=== PATIENT | male | born 1960 | race Caucasian/White ===

== ENCOUNTER 2016-05-05 17:43 | Inpatient (IN) | payer MEDICAID, OTHER ==
[~2016-05-05] VITALS: Ht 170.2 cm; Wt 64.4 kg
[~2016-05-05 17:43] MED LIST: METH40TA2 PO
[2016-05-05] MEDS ORDERED: FOLI1 PO (19:47)
[2016-05-05] MEDS ORDERED: PARO20TA24 PO (19:47)
[2016-05-05] MEDS ORDERED: GABA-531 PO (19:47)
[2016-05-05] MEDS ORDERED: THIA100 PO (19:47)
[2016-05-05 19:57] LABS: GLUCOSE,POINT OF CARE 73 MG/DL (70-110)
[2016-05-05 19:59] LABS: BASOPHILS # (AUTO) 0.06 K/uL (0.00-0.20); EOSINOPHILS # (AUTO) 0.25 K/uL (0.00-0.70); EOSINOPHILS % (AUTO) 4.22 % (1.0-6.0); HEMATOCRIT 38.7 % (41-53); LYMPHOCYTES # (AUTO) 2.8 K/uL (1.0-4.8); LYMPHOCYTES % (AUTO) 47.7 % (22.0-44.0); MEAN CORPUSCULAR HEMOGLOBIN 30.2 pg (26.0-34.0); MEAN CORPUSCULAR HGB CONC 33.6 G/dL (31.0-37.0); MEAN CORPUSCULAR VOLUME 90 fL (80-100); MONOCYTES # (AUTO) 0.4 K/uL (0.1-1.0); MONOCYTES % (AUTO) 6.5 % (2.0-9.0); NEUTROPHILS # (AUTO) 2.4 K/uL (1.8-7.7); NEUTROPHILS % (AUTO) 40.6 % (40.0-70.0); PLATELET COUNT (AUTO) 148 K/uL (150-450); RED BLOOD CELL COUNT(AUTO) 4.31 MIL/uL (4.50-5.90); RED CELL DISTRIBUTION WIDTH 13.1 % (11.5-14.5); WHITE BLOOD COUNT (AUTO) 5.9 K/uL (4.5-11.0)
[2016-05-05 20:02] LABS: ANION GAP 10 mmol/L (8-16); CALCIUM, TOTAL 8.3 mg/dL (8.8-10.5); CARBON DIOXIDE 27 mmol/L (22-29); CHLORIDE 103 mmol/L (98-107); CREATININE 0.72 mg/dL (0.60-1.30); GLOMERULAR FILTR. RATE CALC > 60 mL/min (>60); POTASSIUM 4.1 mmol/L (3.5-5.1); SODIUM SERUM 140 mmol/L (136-145); UREA NITROGEN, BLOOD 9 mg/dL (7-18)
[2016-05-05 20:09] LABS: ALANINE AMINOTRANSFERASE 29 U/L (12-78); ASPARTATE AMINOTRANSFERASE 31 U/L (15-37); BILIRUBIN,TOTAL 0.3 mg/dL (0.1-1.0); TOTAL PROTEIN, SERUM 8.2 g/dL (6.4-8.2)
[2016-05-05] MEDS ORDERED: HALOPERIDOL 5 MG TABLET PO PRN (22:30)
[2016-05-06 00:37] VITALS: BP 149/91
[2016-05-06] MEDS ORDERED: PNEUMOCOCCAL VACCINE POLYVALENT 0.5 ML VIAL [PPSV23] IM ONE (01:15)
[2016-05-06 07:06] LABS: GLUCOSE,POINT OF CARE 110 MG/DL (70-110)
[2016-05-06 08:38] VITALS: BP 132/71
[2016-05-06] MEDS: METHADONE HCL 10 MG TABLET PO SCH (09:17)
[2016-05-06] MEDS ORDERED: HYPROMELLOSE 0.5% 15 ML OPHTHALMIC SOLUTION OU PRN (11:45)
[2016-05-06] MEDS: LORazepam 2 MG TABLET PO PRN (11:46)
[2016-05-06 16:27] VITALS: BP 116/77
[2016-05-06] MEDS: NEOMYCIN/POLYMYXIN B/HYDROCORT 10 ML OTIC SUSPENSION AD SCH (17:00)
[2016-05-06] MEDS: HYDROCORTISONE 1% 30 GM OINTMENT TP SCH (17:51)
[2016-05-06] MEDS: OLANZapine 5 MG TABLET PO SCH (20:51)
[2016-05-06] MEDS: ZOLPIDEM TARTRATE 10 MG TABLET PO PRN (20:51)
[2016-05-07 00:05] VITALS: BP 125/71
[2016-05-07 08:35] VITALS: BP 100/64
[2016-05-07 09:00] VITALS: BP 118/80
[2016-05-07] MEDS: METHADONE HCL 10 MG TABLET PO SCH (09:04)
[2016-05-07] MEDS: FLUoxetine HCL 20 MG CAPSULE PO SCH (09:04)
[2016-05-07] MEDS: NEOMYCIN/POLYMYXIN B/HYDROCORT 10 ML OTIC SUSPENSION AD SCH ×3 (09:08→17:16)
[2016-05-07] MEDS: HYDROCORTISONE 1% 30 GM OINTMENT TP SCH ×2 (09:08→17:16)
[2016-05-07 10:56] LABS: GLUCOSE,POINT OF CARE 101 MG/DL (70-110)
[2016-05-07] MEDS: LORazepam 2 MG TABLET PO PRN (12:32)
[2016-05-07 16:10] VITALS: BP 120/76
[2016-05-07] MEDS: ZOLPIDEM TARTRATE 10 MG TABLET PO PRN (20:33)
[2016-05-07] MEDS: OLANZapine 5 MG TABLET PO SCH (20:33)
[2016-05-08 00:26] VITALS: BP 112/70
[2016-05-08] MEDS: METHADONE HCL 10 MG TABLET PO SCH (08:43)
[2016-05-08] MEDS: FLUoxetine HCL 20 MG CAPSULE PO SCH (08:43)
[2016-05-08] MEDS: NEOMYCIN/POLYMYXIN B/HYDROCORT 10 ML OTIC SUSPENSION AD SCH (08:47)
[2016-05-08] MEDS: HYDROCORTISONE 1% 30 GM OINTMENT TP SCH (08:47)
[2016-05-08 08:52] VITALS: BP 127/81
[2016-05-08] MEDS ORDERED: NICOTINE 21 MG/24 HOUR PATCH TD SCH (09:00)
[2016-05-08] MEDS ORDERED: FLUO-191 PO (09:48)
[2016-05-08] MEDS ORDERED: OLAN5TAB2 PO (09:48)
[2016-05-08] MEDS ORDERED: CORTSUSP AD (09:48)
== END 2016-05-08 12:10 | disposition home or self-care (01) | DRG 750 ==
LOC: EMS 17:46 → EEVIPCON 17:46 → B2S 23:43
PROVIDERS: ADMIT Psychiatry & Neurology Psychiatry; ATTEND Psychiatry & Neurology Psychiatry
DX: F25.0 Schizoaffective disorder, bipolar type (principal); R45.851 Suicidal ideations; E11.9 Type 2 diabetes mellitus without complications; B19.20 Unspecified viral hepatitis C without hepatic coma; B35.9 Dermatophytosis, unspecified; D64.9 Anemia, unspecified; F11.90 Opioid use, unspecified, uncomplicated; H66.90 Otitis media, unspecified, unspecified ear; F17.210 Nicotine dependence, cigarettes, uncomplicated; F60.3 Borderline personality disorder; F12.90 Cannabis use, unspecified, uncomplicated; K21.9 Gastro-esophageal reflux disease without esophagitis; Z59.0 Homelessness; Z91.5 Personal history of self-harm; Z79.899 Other long term (current) drug therapy
CPT/HCPCS: 82962; 90471; 99285; G0480

== ENCOUNTER 2016-05-30 18:01 | Inpatient (IN) | payer MEDICAID, OTHER ==
[~2016-05-30] VITALS: Ht 170.2 cm; Wt 68.1 kg
[~2016-05-30 18:01] MED LIST changes: +CORTSUSP AD; +FLUO-191 PO; -METH40TA2 PO; +OLAN5TAB2 PO
[2016-05-30 18:45] LABS: BASOPHILS # (AUTO) 0.05 K/uL (0.00-0.20); BASOPHILS % (AUTO) 0.7 % (0.0-2.0); EOSINOPHILS # (AUTO) 0.34 K/uL (0.00-0.70); EOSINOPHILS % (AUTO) 4.68 % (1.0-6.0); HEMATOCRIT 35.6 % (41-53); HEMOGLOBIN 12.1 g/dL (13.5-17.5); LYMPHOCYTES # (AUTO) 2.8 K/uL (1.0-4.8); LYMPHOCYTES % (AUTO) 39.1 % (22.0-44.0); MEAN CORPUSCULAR HEMOGLOBIN 30.3 pg (26.0-34.0); MEAN CORPUSCULAR HGB CONC 34.1 G/dL (31.0-37.0); MEAN CORPUSCULAR VOLUME 89 fL (80-100); MONOCYTES # (AUTO) 0.5 K/uL (0.1-1.0); MONOCYTES % (AUTO) 6.4 % (2.0-9.0); NEUTROPHILS # (AUTO) 3.6 K/uL (1.8-7.7); NEUTROPHILS % (AUTO) 49.2 % (40.0-70.0); PLATELET COUNT (AUTO) 159 K/uL (150-450); RED BLOOD CELL COUNT(AUTO) 4.01 MIL/uL (4.50-5.90); RED CELL DISTRIBUTION WIDTH 13.6 % (11.5-14.5); WHITE BLOOD COUNT (AUTO) 7.3 K/uL (4.5-11.0)
[2016-05-30 18:56] LABS: ANION GAP 13 mmol/L (8-16); CALCIUM, TOTAL 7.7 mg/dL (8.8-10.5); CARBON DIOXIDE 23 mmol/L (22-29); CHLORIDE 107 mmol/L (98-107); CREATININE 0.73 mg/dL (0.60-1.30); GLOMERULAR FILTR. RATE CALC > 60 mL/min (>60); POTASSIUM 3.6 mmol/L (3.5-5.1); SODIUM SERUM 143 mmol/L (136-145); UREA NITROGEN, BLOOD 14 mg/dL (7-18)
[2016-05-30 19:02] LABS: ALANINE AMINOTRANSFERASE 30 U/L (12-78); ALBUMIN 3.6 g/dL (3.4-5.0); ASPARTATE AMINOTRANSFERASE 34 U/L (15-37); BILIRUBIN,TOTAL 0.3 mg/dL (0.1-1.0); TOTAL PROTEIN, SERUM 7.7 g/dL (6.4-8.2)
[2016-05-30] MEDS ORDERED: LORazepam 2 MG/ML VIAL IM ONE (20:30)
[2016-05-30 20:57] LABS: GLUCOSE COMMENT 1 Doctor Notified; GLUCOSE,POINT OF CARE 140 MG/DL (70-110)
[2016-05-30 22:24] VITALS: BP 105/69
[2016-05-31 02:09] VITALS: BP 133/99
[2016-05-31] MEDS: ZOLPIDEM TARTRATE 10 MG TABLET PO PRN ×2 (02:10→21:15)
[2016-05-31] MEDS: LORazepam 2 MG TABLET PO PRN ×2 (05:08→12:16)
[2016-05-31 06:59] LABS: CHOL/HDL RATIO 2.4 (4.2-7.3)
[2016-05-31 07:06] LABS: HEMOGLOBIN A1C 5.7 % (4.5-6.2)
[2016-05-31 08:20] VITALS: BP 116/75
[2016-05-31] MEDS ORDERED: METHADONE HCL 10 MG TABLET PO SCH (08:45)
[2016-05-31] MEDS: METHADONE HCL 10 MG TABLET PO SCH (08:51)
[2016-05-31] MEDS: NICOTINE 21 MG/24 HOUR PATCH TD SCH (09:16)
[2016-05-31 10:03] LABS: GLUCOSE,POINT OF CARE 112 MG/DL (70-110)
[2016-05-31] MEDS: HALOPERIDOL 5 MG TABLET PO PRN (12:17)
[2016-05-31 16:00] VITALS: BP 121/76
[2016-05-31] MEDS ORDERED: OLANZapine 5 MG TABLET PO SCH (21:00)
[2016-06-01] MEDS: LORazepam 2 MG TABLET PO PRN ×2 (00:35→20:45)
[2016-06-01] MEDS: HALOPERIDOL 5 MG TABLET PO PRN ×2 (01:01→20:45)
[2016-06-01 01:27] VITALS: BP 145/75
[2016-06-01 05:32] LABS: GLUCOSE,POINT OF CARE 93 MG/DL (70-110)
[2016-06-01] MEDS: METHADONE HCL 10 MG TABLET PO SCH (08:15)
[2016-06-01] MEDS: NICOTINE 21 MG/24 HOUR PATCH TD SCH (08:19)
[2016-06-01] MEDS ORDERED: FLUoxetine HCL 20 MG CAPSULE PO SCH (09:00)
[2016-06-01 12:43] VITALS: BP 116/81
[2016-06-01 16:00] VITALS: BP 118/78
[2016-06-01] MEDS: OLANZapine 5 MG TABLET PO SCH (17:30)
[2016-06-02 06:01] LABS: GLUCOSE,POINT OF CARE 87 MG/DL (70-110)
[2016-06-02] MEDS: METHADONE HCL 10 MG TABLET PO SCH (08:08)
[2016-06-02] MEDS: NICOTINE 21 MG/24 HOUR PATCH TD SCH (08:09)
[2016-06-02] MEDS: OLANZapine 5 MG TABLET PO SCH (08:09)
[2016-06-02] MEDS ORDERED: FLUoxetine HCL 20 MG CAPSULE PO SCH (09:00)
[2016-06-02 09:25] VITALS: BP 126/72
[2016-06-02] MEDS ORDERED: METH10 PO (12:41)
[2016-06-02 16:05] VITALS: BP 123/79
== END 2016-06-02 16:45 | DRG 750 ==
LOC: EMS 18:04 → 3EC 20:40
PROVIDERS: ADMIT Psychiatry & Neurology Psychiatry; ATTEND Psychiatry & Neurology Psychiatry
DX: F25.0 Schizoaffective disorder, bipolar type (principal); R45.851 Suicidal ideations; E11.9 Type 2 diabetes mellitus without complications; B19.20 Unspecified viral hepatitis C without hepatic coma; D64.9 Anemia, unspecified; F41.9 Anxiety disorder, unspecified; F60.3 Borderline personality disorder; K21.9 Gastro-esophageal reflux disease without esophagitis; Z71.51 Drug abuse counseling and surveillance of drug abuser; F17.210 Nicotine dependence, cigarettes, uncomplicated; F12.90 Cannabis use, unspecified, uncomplicated; Z79.899 Other long term (current) drug therapy; Z59.0 Homelessness; Z62.819 Personal history of unspecified abuse in childhood; Z91.5 Personal history of self-harm
CPT/HCPCS: 82962; 83036; 87081; 96372; 99285; G0480; J2060

== ENCOUNTER 2016-07-06 17:44 | Inpatient (IN) | payer MEDICAID, OTHER ==
[~2016-07-06] VITALS: Ht 170.2 cm; Wt 144.7 kg
[~2016-07-06 17:44] MED LIST changes: -CORTSUSP AD; +METH10 PO
[2016-07-06 18:38] LABS: BASOPHILS % (AUTO) 0.8 % (0.0-2.0); EOSINOPHILS % (AUTO) 4.4 % (1.0-6.0); HEMATOCRIT 39.7 % (41-53); LYMPHOCYTES # (AUTO) 2.3 K/uL (1.0-4.8); LYMPHOCYTES % (AUTO) 42.7 % (22.0-44.0); MEAN CORPUSCULAR HEMOGLOBIN 29.5 pg (26.0-34.0); MEAN CORPUSCULAR HGB CONC 32.7 G/dL (31.0-37.0); MEAN CORPUSCULAR VOLUME 90 fL (80-100); MONOCYTES # (AUTO) 0.4 K/uL (0.1-1.0); MONOCYTES % (AUTO) 6.6 % (2.0-9.0); NEUTROPHILS # (AUTO) 2.5 K/uL (1.8-7.7); NEUTROPHILS % (AUTO) 45.5 % (40.0-70.0); PLATELET COUNT (AUTO) 138 K/uL (150-450); RED CELL DISTRIBUTION WIDTH 13.1 % (11.5-14.5); WHITE BLOOD COUNT (AUTO) 5.5 K/uL (4.5-11.0)
[2016-07-06 18:45] LABS: ANION GAP 13 mmol/L (8-16); CALCIUM, TOTAL 8.6 mg/dL (8.8-10.5); CARBON DIOXIDE 24 mmol/L (22-29); CHLORIDE 101 mmol/L (98-107); CREATININE 0.61 mg/dL (0.60-1.30); GLOMERULAR FILTR. RATE CALC > 60 mL/min (>60); POTASSIUM 4.1 mmol/L (3.5-5.1); SODIUM SERUM 138 mmol/L (136-145); UREA NITROGEN, BLOOD 13 mg/dL (7-18)
[2016-07-06 18:50] LABS: ALANINE AMINOTRANSFERASE 25 U/L (12-78); ALBUMIN 4.2 g/dL (3.4-5.0); ASPARTATE AMINOTRANSFERASE 33 U/L (15-37); BILIRUBIN,TOTAL 0.5 mg/dL (0.1-1.0); TOTAL PROTEIN, SERUM 8.5 g/dL (6.4-8.2)
[2016-07-06 21:58] LABS: APPEARANCE,URINE CLEAR (CLEAR); GLUCOSE, URINE (UA) NEGATIVE (NEGATIVE); KETONES,URINE NEGATIVE (NEGATIVE); LEUKOCYTE ESTERASE ,URINE NEGATIVE (NEGATIVE); OCCULT BLOOD,URINE NEGATIVE (NEGATIVE); PH,URINE 5.5 (5.0-8.0); PROTEIN,URINE NEGATIVE (NEGATIVE)
[2016-07-06 22:02] LABS: ADD UA MICROSCOPIC NO
[2016-07-06] MEDS: HALOPERIDOL 5 MG TABLET PO PRN (22:17)
[2016-07-06] MEDS: LORazepam 2 MG TABLET PO PRN (22:17)
[2016-07-06 22:35] VITALS: BP 155/81
[2016-07-07] VITALS (8 sets, daily range): BP systolic 109–147; BP diastolic 70–97
[2016-07-07] MEDS ORDERED: CloNIDine HCL 0.1 MG TABLET PO PRN ×2 (07:45→11:00)
[2016-07-07] MEDS ORDERED: MAGNESIUM HYDROXIDE SUSPENSION 30 ML UDCUP PO PRN (07:45)
[2016-07-07] MEDS ORDERED: IBUPROFEN 600 MG TABLET PO PRN ×2 (07:45→11:00)
[2016-07-07] MEDS ORDERED: BACITRACIN 28.4 GM OINTMENT TP PRN (07:45)
[2016-07-07] MEDS ORDERED: LOPERAMIDE HCL 2 MG CAPSULE PO PRN ×2 (07:45→11:00)
[2016-07-07] MEDS ORDERED: ONDANSETRON HCL 4 MG TABLET PO PRN (07:45)
[2016-07-07] MEDS ORDERED: ACETAMINOPHEN 325 MG TABLET PO PRN (07:45)
[2016-07-07] MEDS ORDERED: PETROLATUM,WHITE 71 GM JELLY TP PRN (07:45)
[2016-07-07] MEDS ORDERED: ALBUTEROL SULFATE HFA 90 MCG/PUFF 8 GM INHALER IH PRN (07:45)
[2016-07-07] MEDS: BENZOCAINE/MENTHOL LOZENGE [8 LOZENGES/PACKET] MM PRN (09:40)
[2016-07-07] MEDS: NICOTINE 21 MG/24 HOUR PATCH TD SCH (09:40)
[2016-07-07] MEDS ORDERED: PROMETHAZINE HCL 25 MG/ML VIAL IM PRN (11:00)
[2016-07-07] MEDS ORDERED: GuaiFENesin/D-METHORPHAN [SUGAR-FREE] 200-20MG/10 ML SYRUP UDCUP PO PRN (11:00)
[2016-07-07] MEDS ORDERED: HydrOXYzine PAMOATE 50 MG CAPSULE PO PRN ×2 (11:00)
[2016-07-07] MEDS: CloNIDine HCL 0.1 MG TABLET PO SCH ×3 (11:52→21:50)
[2016-07-07] MEDS: ZOLPIDEM TARTRATE 10 MG TABLET PO PRN (21:06)
[2016-07-08] VITALS (9 sets, daily range): BP systolic 99–128; BP diastolic 55–90
[2016-07-08] MEDS: LORazepam 2 MG TABLET PO PRN ×3 (00:34→19:34)
[2016-07-08] MEDS ORDERED: -PHARMACY VACCINE NOTE- MISC ONE ×2 (01:30)
[2016-07-08] MEDS: CloNIDine HCL 0.1 MG TABLET PO SCH ×4 (06:05→21:34)
[2016-07-08] MEDS: FLUoxetine HCL 20 MG CAPSULE PO SCH (08:56)
[2016-07-08] MEDS: TRIAMCINOLONE 0.1% 15 GM OINTMENT TP PRN (08:58)
[2016-07-08] MEDS: NICOTINE 21 MG/24 HOUR PATCH TD SCH (10:35)
[2016-07-08] MEDS: ZOLPIDEM TARTRATE 10 MG TABLET PO PRN (22:00)
[2016-07-09 02:00] VITALS: BP 121/73
[2016-07-09] MEDS: LORazepam 2 MG TABLET PO PRN ×3 (02:33→23:43)
[2016-07-09 06:00] VITALS: BP 122/79
[2016-07-09] MEDS: CloNIDine HCL 0.1 MG TABLET PO SCH ×4 (06:08→21:59)
[2016-07-09] MEDS: HALOPERIDOL 5 MG TABLET PO PRN (09:18)
[2016-07-09] MEDS: FLUoxetine HCL 20 MG CAPSULE PO SCH (09:19)
[2016-07-09] MEDS: MAG HYDROX/AL HYDROX/SIMETH ES 30 ML SUSPENSION UDCUP PO PRN (09:24)
[2016-07-09] MEDS: NICOTINE 21 MG/24 HOUR PATCH TD SCH (09:24)
[2016-07-09 13:58] VITALS: BP 111/73
[2016-07-09 18:16] VITALS: BP 118/78
[2016-07-09] MEDS: ZOLPIDEM TARTRATE 10 MG TABLET PO PRN (20:54)
[2016-07-10] MEDS: CloNIDine HCL 0.1 MG TABLET PO SCH ×4 (06:00→22:00)
[2016-07-10 06:07] VITALS: BP 100/82
[2016-07-10 08:00] VITALS: BP 109/86
[2016-07-10] MEDS: FLUoxetine HCL 20 MG CAPSULE PO SCH (08:57)
[2016-07-10] MEDS: LORazepam 2 MG TABLET PO PRN ×2 (08:59→16:01)
[2016-07-10] MEDS: NICOTINE 21 MG/24 HOUR PATCH TD SCH (09:02)
[2016-07-10] MEDS: MAG HYDROX/AL HYDROX/SIMETH ES 30 ML SUSPENSION UDCUP PO PRN (11:38)
[2016-07-10 12:53] VITALS: BP 108/72
[2016-07-10 16:00] VITALS: BP 116/74
[2016-07-10] MEDS: ZOLPIDEM TARTRATE 10 MG TABLET PO PRN (21:05)
[2016-07-11] MEDS: LORazepam 2 MG TABLET PO PRN ×4 (00:44→20:33)
[2016-07-11 00:45] VITALS: BP 124/71
[2016-07-11] MEDS: MAG HYDROX/AL HYDROX/SIMETH ES 30 ML SUSPENSION UDCUP PO PRN ×2 (03:24→11:37)
[2016-07-11] MEDS: CloNIDine HCL 0.1 MG TABLET PO SCH ×4 (05:53→22:00)
[2016-07-11] MEDS: FLUoxetine HCL 20 MG CAPSULE PO SCH (08:13)
[2016-07-11] MEDS: NICOTINE 21 MG/24 HOUR PATCH TD SCH (08:14)
[2016-07-11] MEDS: BENZOCAINE/MENTHOL LOZENGE [8 LOZENGES/PACKET] MM PRN (08:16)
[2016-07-11] MEDS: TRIAMCINOLONE 0.1% 15 GM OINTMENT TP PRN (08:16)
[2016-07-11 08:30] VITALS: BP 113/78
[2016-07-11 14:19] LABS: CHOL/HDL RATIO 2.2 (4.2-7.3)
[2016-07-11 16:28] VITALS: BP 108/78
[2016-07-11] MEDS: ZOLPIDEM TARTRATE 10 MG TABLET PO PRN (22:21)
[2016-07-12] MEDS: MAG HYDROX/AL HYDROX/SIMETH ES 30 ML SUSPENSION UDCUP PO PRN (00:33)
[2016-07-12] MEDS: ZOLPIDEM TARTRATE 10 MG TABLET PO PRN (02:07)
[2016-07-12 06:03] VITALS: BP 112/74
[2016-07-12 06:55] VITALS: BP 110/76
[2016-07-12] MEDS: CloNIDine HCL 0.1 MG TABLET PO SCH (06:58)
[2016-07-12] MEDS: FLUoxetine HCL 20 MG CAPSULE PO SCH (09:08)
[2016-07-12] MEDS: NICOTINE 21 MG/24 HOUR PATCH TD SCH (09:10)
[2016-07-12] MEDS: TRIAMCINOLONE 0.1% 15 GM OINTMENT TP PRN (09:11)
[2016-07-12] MEDS: LORazepam 2 MG TABLET PO PRN (09:11)
[2016-07-12] MEDS: BENZOCAINE/MENTHOL LOZENGE [8 LOZENGES/PACKET] MM PRN (09:12)
[2016-07-12 09:46] VITALS: BP 105/65
== END 2016-07-12 10:45 | disposition home or self-care (01) | DRG 750 ==
LOC: EMS 17:46 → 3EI 21:46
PROVIDERS: ADMIT Psychiatry & Neurology Psychiatry; ATTEND Psychiatry & Neurology Psychiatry
PROC: HZ37ZZZ Individual Counseling for Substance Abuse Treatment, Motivational Enhancement (ICD-10-PCS; principal; 2016-07-07)
DX: F25.9 Schizoaffective disorder, unspecified (principal); D69.6 Thrombocytopenia, unspecified; F11.20 Opioid dependence, uncomplicated; J44.9 Chronic obstructive pulmonary disease, unspecified; E11.9 Type 2 diabetes mellitus without complications; I10 Essential (primary) hypertension; F31.9 Bipolar disorder, unspecified; K21.9 Gastro-esophageal reflux disease without esophagitis; B18.2 Chronic viral hepatitis C; F17.210 Nicotine dependence, cigarettes, uncomplicated; F12.90 Cannabis use, unspecified, uncomplicated; L30.9 Dermatitis, unspecified; G47.9 Sleep disorder, unspecified; F22 Delusional disorders; Z71.41 Alcohol abuse counseling and surveillance of alcoholic; Z72.89 Other problems related to lifestyle; Z71.6 Tobacco abuse counseling; Z71.51 Drug abuse counseling and surveillance of drug abuser; Z59.0 Homelessness; Z79.899 Other long term (current) drug therapy
CPT/HCPCS: 99285; G0480

== ENCOUNTER 2016-09-19 22:16 | Inpatient (IN) | payer MEDICAID ==
[~2016-09-19] VITALS: Ht 170.2 cm; Wt 70.2 kg
[~2016-09-19 22:16] MED LIST changes: -METH10 PO; -OLAN5TAB2 PO
[2016-09-19] MEDS ORDERED: QUEtiapine FUMARATE 100 MG TABLET PO PRN (22:45)
[2016-09-19 22:59] VITALS: BP 118/90
[2016-09-19] MEDS ORDERED: -PHARMACY VACCINE NOTE- MISC ONE ×2 (23:00)
[2016-09-20 00:43] VITALS: BP 123/86
[2016-09-20] MEDS: ZOLPIDEM TARTRATE 10 MG TABLET PO PRN (00:44)
[2016-09-20] MEDS: LORazepam 2 MG TABLET PO PRN ×2 (08:43→21:07)
[2016-09-20 08:46] VITALS: BP 116/76
[2016-09-20 08:56] LABS: BASOPHILS % (AUTO) 0.9 % (0.0-2.0); EOSINOPHILS % (AUTO) 7.5 % (1.0-6.0); HEMATOCRIT 37.9 % (41-53); LYMPHOCYTES # (AUTO) 1.8 K/uL (1.0-4.8); LYMPHOCYTES % (AUTO) 40.7 % (22.0-44.0); MEAN CORPUSCULAR HEMOGLOBIN 30.6 pg (26.0-34.0); MEAN CORPUSCULAR HGB CONC 34.3 G/dL (31.0-37.0); MEAN CORPUSCULAR VOLUME 89 fL (80-100); MONOCYTES # (AUTO) 0.4 K/uL (0.1-1.0); NEUTROPHILS # (AUTO) 1.8 K/uL (1.8-7.7); NEUTROPHILS % (AUTO) 40.9 % (40.0-70.0); PLATELET COUNT (AUTO) 145 K/uL (150-450); RED BLOOD CELL COUNT(AUTO) 4.24 MIL/uL (4.50-5.90); WHITE BLOOD COUNT (AUTO) 4.5 K/uL (4.5-11.0)
[2016-09-20] MEDS ORDERED: SERTRALINE HCL 50 MG TABLET PO SCH (09:00)
[2016-09-20 09:16] LABS: HEMOGLOBIN A1C 5.6 % (4.5-6.2)
[2016-09-20 09:38] LABS: ALANINE AMINOTRANSFERASE 42 U/L (12-78); ALBUMIN 3.8 g/dL (3.4-5.0); ANION GAP 7 mmol/L (8-16); ASPARTATE AMINOTRANSFERASE 46 U/L (15-37); BILIRUBIN,TOTAL 0.6 mg/dL (0.1-1.0); CALCIUM, TOTAL 8.6 mg/dL (8.8-10.5); CARBON DIOXIDE 29 mmol/L (22-29); CHLORIDE 103 mmol/L (98-107); CHOL/HDL RATIO 2.2 (4.2-7.3); CREATININE 0.73 mg/dL (0.60-1.30); GLOMERULAR FILTR. RATE CALC > 60 mL/min (>60); POTASSIUM 4.1 mmol/L (3.5-5.1); SODIUM SERUM 139 mmol/L (136-145); THYROID STIMULATING HORMONE 2.71 uIU/mL (0.36-3.74); TOTAL PROTEIN, SERUM 7.3 g/dL (6.4-8.2); UREA NITROGEN, BLOOD 14 mg/dL (7-18)
[2016-09-20] MEDS ORDERED: TUBERCULIN, PURIFIED PROTEIN DERIVATIVE 5 TU/0.1 ML SYG ID ONE (10:00)
[2016-09-20] MEDS ORDERED: GuaiFENesin/D-METHORPHAN [SUGAR-FREE] 200-20MG/10 ML SYRUP UDCUP PO PRN (10:00)
[2016-09-20] MEDS ORDERED: PROMETHAZINE HCL 25 MG TABLET PO PRN (10:00)
[2016-09-20] MEDS ORDERED: LOPERAMIDE HCL 2 MG CAPSULE PO PRN ×2 (10:00→10:15)
[2016-09-20] MEDS ORDERED: ACETAMINOPHEN 325 MG TABLET PO PRN ×2 (10:00→10:15)
[2016-09-20] MEDS ORDERED: OLANZapine 5 MG RAPDIS TABLET PO PRN (10:00)
[2016-09-20] MEDS ORDERED: HydrOXYzine PAMOATE 50 MG CAPSULE PO PRN (10:00)
[2016-09-20] MEDS ORDERED: ONDANSETRON HCL 4 MG TABLET PO PRN (10:15)
[2016-09-20] MEDS ORDERED: ALBUTEROL SULFATE HFA 90 MCG/PUFF 8 GM INHALER IH PRN (10:15)
[2016-09-20] MEDS ORDERED: MAGNESIUM HYDROXIDE SUSPENSION 30 ML UDCUP PO PRN (10:15)
[2016-09-20] MEDS ORDERED: BACITRACIN 28.4 GM OINTMENT TP PRN (10:15)
[2016-09-20] MEDS ORDERED: BENZOCAINE/MENTHOL LOZENGE MM PRN (10:15)
[2016-09-20] MEDS ORDERED: IBUPROFEN 600 MG TABLET PO PRN (10:15)
[2016-09-20] MEDS ORDERED: CloNIDine HCL 0.1 MG TABLET PO PRN (10:15)
[2016-09-20] MEDS ORDERED: MAG HYDROX/AL HYDROX/SIMETH ES 30 ML SUSPENSION UDCUP PO PRN (10:15)
[2016-09-20] MEDS ORDERED: PETROLATUM,WHITE 71 GM JELLY TP PRN (10:15)
[2016-09-20] MEDS: METHADONE HCL 10 MG TABLET PO SCH (10:43)
[2016-09-20] MEDS: ACAMPROSATE CALCIUM 333 MG DR TABLET PO SCH ×2 (12:52→16:28)
[2016-09-20 16:26] VITALS: BP 133/80
[2016-09-20] MEDS: THIAMINE HCL 100 MG TABLET PO SCH (16:28)
[2016-09-20] MEDS ORDERED: OLANZapine 5 MG RAPDIS TABLET PO SCH (21:00)
[2016-09-21 00:30] VITALS: BP 119/73
[2016-09-21 08:01] VITALS: BP 119/70
[2016-09-21] MEDS: METHADONE HCL 10 MG TABLET PO SCH (08:31)
[2016-09-21] MEDS: MULTIVITAMINS WITH MINERALS, THERAPEUTIC TABLET PO SCH (08:32)
[2016-09-21] MEDS: THIAMINE HCL 100 MG TABLET PO SCH ×2 (08:32→16:10)
[2016-09-21] MEDS: OMEPRAZOLE 20 MG CAPSULE PO SCH (08:32)
[2016-09-21] MEDS: DOCUSATE SODIUM 100 MG CAPSULE PO SCH (08:32)
[2016-09-21] MEDS: FOLIC ACID 1 MG TABLET PO SCH (08:32)
[2016-09-21] MEDS: SERTRALINE HCL 100 MG TABLET PO SCH (08:32)
[2016-09-21] MEDS: ACAMPROSATE CALCIUM 333 MG DR TABLET PO SCH ×3 (08:33→16:10)
[2016-09-21] MEDS: LORazepam 2 MG TABLET PO PRN ×2 (12:40→19:05)
[2016-09-21 16:39] VITALS: BP 116/77
[2016-09-21] MEDS: OLANZapine 10 MG RAPDIS TABLET PO SCH (20:20)
[2016-09-21] MEDS: ZOLPIDEM TARTRATE 10 MG TABLET PO PRN (20:21)
[2016-09-22] MEDS: LORazepam 2 MG TABLET PO PRN ×2 (00:06→20:12)
[2016-09-22 00:10] VITALS: BP 106/78
[2016-09-22 08:34] VITALS: BP 123/76
[2016-09-22] MEDS: MULTIVITAMINS WITH MINERALS, THERAPEUTIC TABLET PO SCH (09:26)
[2016-09-22] MEDS: FOLIC ACID 1 MG TABLET PO SCH (09:26)
[2016-09-22] MEDS: THIAMINE HCL 100 MG TABLET PO SCH ×2 (09:26→16:04)
[2016-09-22] MEDS: METHADONE HCL 10 MG TABLET PO SCH (09:26)
[2016-09-22] MEDS: DOCUSATE SODIUM 100 MG CAPSULE PO SCH (09:26)
[2016-09-22] MEDS: NICOTINE 21 MG/24 HOUR PATCH TD SCH (09:26)
[2016-09-22] MEDS: SERTRALINE HCL 100 MG TABLET PO SCH (09:26)
[2016-09-22] MEDS: OMEPRAZOLE 20 MG CAPSULE PO SCH (09:26)
[2016-09-22] MEDS: ACAMPROSATE CALCIUM 333 MG DR TABLET PO SCH ×3 (09:26→16:04)
[2016-09-22] MEDS: MAG HYDROX/AL HYDROX/SIMETH ES 30 ML SUSPENSION UDCUP PO PRN (16:15)
[2016-09-22 16:19] VITALS: BP 114/71
[2016-09-22] MEDS: OLANZapine 10 MG RAPDIS TABLET PO SCH (20:12)
[2016-09-22] MEDS: ZOLPIDEM TARTRATE 10 MG TABLET PO PRN (21:11)
[2016-09-23 06:24] VITALS: BP 132/87
[2016-09-23 08:02] VITALS: BP 138/87
[2016-09-23] MEDS ORDERED: SERTRALINE HCL 100 MG TABLET PO SCH (09:00)
[2016-09-23] MEDS: NICOTINE 21 MG/24 HOUR PATCH TD SCH (09:13)
[2016-09-23] MEDS: FOLIC ACID 1 MG TABLET PO SCH (09:13)
[2016-09-23] MEDS: METHADONE HCL 10 MG TABLET PO SCH (09:13)
[2016-09-23] MEDS: DOCUSATE SODIUM 100 MG CAPSULE PO SCH (09:14)
[2016-09-23] MEDS: THIAMINE HCL 100 MG TABLET PO SCH (09:14)
[2016-09-23] MEDS: LORazepam 2 MG TABLET PO PRN (09:14)
[2016-09-23] MEDS: ACAMPROSATE CALCIUM 333 MG DR TABLET PO SCH ×2 (09:14→12:21)
[2016-09-23] MEDS: OMEPRAZOLE 20 MG CAPSULE PO SCH (09:14)
[2016-09-23] MEDS: MULTIVITAMINS WITH MINERALS, THERAPEUTIC TABLET PO SCH (09:15)
[2016-09-23] MEDS ORDERED: OLAN10TA22 PO (11:21)
[2016-09-23] MEDS ORDERED: SERT100T12 PO (11:21)
[2016-09-23] MEDS ORDERED: ACAM333T7 PO (11:21)
[2016-09-23] MEDS: MAG HYDROX/AL HYDROX/SIMETH ES 30 ML SUSPENSION UDCUP PO PRN (12:56)
== END 2016-09-23 21:10 | disposition home or self-care (01) | DRG 751 ==
LOC: B2S 22:38 → EDSTATUS 22:42
PROVIDERS: ADMIT Psychiatry & Neurology Psychiatry; ATTEND Psychiatry & Neurology Psychiatry
DX: F32.3 Major depressive disorder, single episode, severe with psychotic features (principal); G93.41 Metabolic encephalopathy; D69.6 Thrombocytopenia, unspecified; J44.9 Chronic obstructive pulmonary disease, unspecified; F11.20 Opioid dependence, uncomplicated; R45.851 Suicidal ideations; E83.51 Hypocalcemia; F17.200 Nicotine dependence, unspecified, uncomplicated; I10 Essential (primary) hypertension; K21.9 Gastro-esophageal reflux disease without esophagitis; B18.2 Chronic viral hepatitis C; G47.00 Insomnia, unspecified; F10.20 Alcohol dependence, uncomplicated; D64.9 Anemia, unspecified
CPT/HCPCS: 82306; 83036; 84439; 84443; 93005

== ENCOUNTER 2017-01-05 11:30 | Inpatient (IN) | payer MEDICAID ==
[~2017-01-05] VITALS: Ht 170.2 cm; Wt 66.2 kg
[~2017-01-05 11:30] MED LIST changes: +ACAM333T7 PO; -FLUO-191 PO; +OLAN10TA22 PO; +SERT100T12 PO
[2017-01-05 13:02] VITALS: BP 140/93
[2017-01-05] MEDS ORDERED: OLAN10TA3 PO (13:36)
[2017-01-05] MEDS ORDERED: SERT100T12 PO (13:36)
[2017-01-05] MEDS: LORazepam 2 MG TABLET PO PRN ×2 (14:43→21:14)
[2017-01-05] MEDS ORDERED: -PHARMACY VACCINE NOTE- MISC ONE ×2 (15:45)
[2017-01-05 16:22] VITALS: BP 140/86
[2017-01-05] MEDS: OLANZapine 10 MG RAPDIS TABLET PO SCH (21:13)
[2017-01-05] MEDS: ZOLPIDEM TARTRATE 10 MG TABLET PO PRN (21:26)
[2017-01-06 00:10] VITALS: BP 138/83
[2017-01-06] MEDS ORDERED: -PHARMACY VACCINE NOTE- MISC ONE ×2 (06:00)
[2017-01-06] MEDS: SERTRALINE HCL 100 MG TABLET PO SCH (08:05)
[2017-01-06] MEDS: LORazepam 2 MG TABLET PO PRN (08:05)
[2017-01-06] MEDS ORDERED: IBUPROFEN 600 MG TABLET PO PRN (09:00)
[2017-01-06] MEDS ORDERED: METHADONE HCL 10 MG/5 ML SOLUTION ORAL.SYG PO SCH (09:00)
[2017-01-06] MEDS ORDERED: ALBUTEROL SULFATE HFA 90 MCG/PUFF 8 GM INHALER IH PRN (09:00)
[2017-01-06] MEDS ORDERED: ACETAMINOPHEN 325 MG TABLET PO PRN (09:00)
[2017-01-06] MEDS ORDERED: BENZOCAINE/MENTHOL LOZENGE MM PRN (09:00)
[2017-01-06] MEDS ORDERED: MAG HYDROX/AL HYDROX/SIMETH ES 30 ML SUSPENSION UDCUP PO PRN (09:00)
[2017-01-06] MEDS ORDERED: MAGNESIUM HYDROXIDE SUSPENSION 30 ML UDCUP PO PRN (09:00)
[2017-01-06] MEDS ORDERED: ONDANSETRON HCL 4 MG TABLET PO PRN (09:00)
[2017-01-06] MEDS ORDERED: PETROLATUM,WHITE 71 GM JELLY TP PRN (09:00)
[2017-01-06] MEDS ORDERED: LOPERAMIDE HCL 2 MG CAPSULE PO PRN (09:00)
[2017-01-06] MEDS ORDERED: BACITRACIN 28.4 GM OINTMENT TP PRN (09:00)
[2017-01-06] MEDS ORDERED: CloNIDine HCL 0.1 MG TABLET PO PRN (09:00)
[2017-01-06 09:06] LABS: BASOPHILS # (AUTO) 0.03 K/uL (0.00-0.20); BASOPHILS % (AUTO) 0.8 % (0.0-2.0); EOSINOPHILS # (AUTO) 0.25 K/uL (0.00-0.70); EOSINOPHILS % (AUTO) 6.15 % (1.0-6.0); HEMATOCRIT 37.4 % (41-53); HEMOGLOBIN 12.7 g/dL (13.5-17.5); LYMPHOCYTES # (AUTO) 1.8 K/uL (1.0-4.8); LYMPHOCYTES % (AUTO) 44.2 % (22.0-44.0); MEAN CORPUSCULAR HEMOGLOBIN 29.8 pg (26.0-34.0); MEAN CORPUSCULAR VOLUME 88 fL (80-100); MONOCYTES # (AUTO) 0.2 K/uL (0.1-1.0); MONOCYTES % (AUTO) 5.9 % (2.0-9.0); NEUTROPHILS # (AUTO) 1.8 K/uL (1.8-7.7); PLATELET COUNT (AUTO) 128 K/uL (150-450); RED BLOOD CELL COUNT(AUTO) 4.27 MIL/uL (4.50-5.90); RED CELL DISTRIBUTION WIDTH 13.6 % (11.5-14.5); WHITE BLOOD COUNT (AUTO) 4.1 K/uL (4.5-11.0)
[2017-01-06] MEDS ORDERED: METHADONE HCL 10 MG TABLET PO SCH (09:15)
[2017-01-06] MEDS: OMEPRAZOLE 20 MG CAPSULE PO SCH (09:41)
[2017-01-06] MEDS: DOCUSATE SODIUM 100 MG CAPSULE PO SCH (09:41)
[2017-01-06 09:54] LABS: ALANINE AMINOTRANSFERASE 33 U/L (12-78); ALBUMIN 3.8 g/dL (3.4-5.0); ANION GAP 7 mmol/L (8-16); ASPARTATE AMINOTRANSFERASE 36 U/L (15-37); BILIRUBIN,TOTAL 0.9 mg/dL (0.1-1.0); CALCIUM, TOTAL 8.6 mg/dL (8.8-10.5); CARBON DIOXIDE 30 mmol/L (22-29); CHLORIDE 105 mmol/L (98-107); CHOL/HDL RATIO 2.5 (4.2-7.3); CREATININE 0.69 mg/dL (0.60-1.30); GLOMERULAR FILTR. RATE CALC > 60 mL/min (>60); HEMOGLOBIN A1C 4.8 % (4.5-6.2); POTASSIUM 4.1 mmol/L (3.5-5.1); SODIUM SERUM 142 mmol/L (136-145); THYROID STIMULATING HORMONE 3.97 uIU/mL (0.36-3.74); TOTAL PROTEIN, SERUM 7.1 g/dL (6.4-8.2); UREA NITROGEN, BLOOD 12 mg/dL (7-18)
[2017-01-06 10:36] VITALS: BP 140/99
[2017-01-06 10:39] LABS: APPEARANCE,URINE CLEAR (CLEAR); GLUCOSE, URINE (UA) NEGATIVE (NEGATIVE); KETONES,URINE NEGATIVE (NEGATIVE); LEUKOCYTE ESTERASE ,URINE NEGATIVE (NEGATIVE); OCCULT BLOOD,URINE NEGATIVE (NEGATIVE); PH,URINE 5.5 (5.0-8.0); PROTEIN,URINE NEGATIVE (NEGATIVE)
[2017-01-06 11:32] LABS: ADD UA MICROSCOPIC NO
[2017-01-06] MEDS ORDERED: METH10SO PO (14:25)
[2017-01-06 19:15] VITALS: BP 136/98
[2017-01-06] MEDS: OLANZapine 10 MG RAPDIS TABLET PO SCH (20:05)
[2017-01-07 06:38] VITALS: BP 140/82
[2017-01-07] MEDS: OMEPRAZOLE 20 MG CAPSULE PO SCH (08:29)
[2017-01-07] MEDS: DOCUSATE SODIUM 100 MG CAPSULE PO SCH (08:29)
[2017-01-07] MEDS: METHADONE HCL 10 MG/5 ML SOLUTION ORAL.SYG PO SCH (08:30)
[2017-01-07] MEDS: SERTRALINE HCL 100 MG TABLET PO SCH (08:30)
[2017-01-07 09:29] VITALS: BP 140/94
[2017-01-07] MEDS: LORazepam 2 MG TABLET PO PRN (10:45)
[2017-01-07] MEDS: NICOTINE 14 MG/24 HOUR PATCH TD SCH (13:40)
[2017-01-07 16:33] VITALS: BP 130/86
[2017-01-07] MEDS: HALOPERIDOL 5 MG TABLET PO PRN (17:50)
[2017-01-07] MEDS: OLANZapine 10 MG RAPDIS TABLET PO SCH (20:27)
[2017-01-07] MEDS: ZOLPIDEM TARTRATE 10 MG TABLET PO PRN (21:20)
[2017-01-08 00:46] VITALS: BP 130/89
[2017-01-08] MEDS: DOCUSATE SODIUM 100 MG CAPSULE PO SCH (08:12)
[2017-01-08] MEDS: SERTRALINE HCL 100 MG TABLET PO SCH (08:12)
[2017-01-08] MEDS: METHADONE HCL 10 MG/5 ML SOLUTION ORAL.SYG PO SCH (08:12)
[2017-01-08] MEDS: OMEPRAZOLE 20 MG CAPSULE PO SCH (08:12)
[2017-01-08] MEDS: NICOTINE 14 MG/24 HOUR PATCH TD SCH (08:13)
[2017-01-08 10:09] VITALS: BP 142/95
[2017-01-08] MEDS: LORazepam 2 MG TABLET PO PRN (12:46)
[2017-01-08] MEDS: HALOPERIDOL 5 MG TABLET PO PRN (16:14)
[2017-01-08 16:18] VITALS: BP 137/87
[2017-01-08] MEDS: OLANZapine 10 MG RAPDIS TABLET PO SCH (20:37)
[2017-01-09 00:37] VITALS: BP 117/89
[2017-01-09 08:11] VITALS: BP 129/80
[2017-01-09] MEDS: DOCUSATE SODIUM 100 MG CAPSULE PO SCH (08:27)
[2017-01-09] MEDS: SERTRALINE HCL 100 MG TABLET PO SCH (08:27)
[2017-01-09] MEDS: OMEPRAZOLE 20 MG CAPSULE PO SCH (08:28)
[2017-01-09] MEDS: METHADONE HCL 10 MG/5 ML SOLUTION ORAL.SYG PO SCH (08:28)
[2017-01-09] MEDS: NICOTINE 14 MG/24 HOUR PATCH TD SCH (08:28)
[2017-01-09] MEDS: LORazepam 2 MG TABLET PO PRN ×2 (12:23→17:40)
[2017-01-09 16:10] VITALS: BP 116/68
[2017-01-09] MEDS: ZOLPIDEM TARTRATE 10 MG TABLET PO PRN (20:28)
[2017-01-09] MEDS: OLANZapine 10 MG RAPDIS TABLET PO SCH (20:28)
[2017-01-10 01:13] VITALS: BP 129/90
[2017-01-10] MEDS: METHADONE HCL 10 MG/5 ML SOLUTION ORAL.SYG PO SCH (08:33)
[2017-01-10] MEDS: DOCUSATE SODIUM 100 MG CAPSULE PO SCH (08:33)
[2017-01-10] MEDS: OMEPRAZOLE 20 MG CAPSULE PO SCH (08:33)
[2017-01-10] MEDS: NICOTINE 14 MG/24 HOUR PATCH TD SCH (08:34)
[2017-01-10] MEDS: SERTRALINE HCL 100 MG TABLET PO SCH (08:34)
[2017-01-10 08:36] VITALS: BP 116/81
[2017-01-10] MEDS: LORazepam 2 MG TABLET PO PRN (12:40)
[2017-01-10] MEDS ORDERED: DSS100 PO (14:52)
[2017-01-10] MEDS ORDERED: ALBU8HFA4 IH ×2 (14:52→14:55)
[2017-01-10] MEDS ORDERED: OMEP20 PO (14:52)
[2017-01-10] MEDS ORDERED: METH10 PO (14:52)
[2017-01-10 16:33] VITALS: BP 126/87
== END 2017-01-10 16:25 | disposition home or self-care (01) | DRG 750 ==
LOC: B2S 12:46 → EDSTATUS 13:02
PROVIDERS: ADMIT Psychiatry & Neurology Psychiatry; ATTEND Psychiatry & Neurology Psychiatry
DX: F25.1 Schizoaffective disorder, depressive type (principal); F11.20 Opioid dependence, uncomplicated; R45.851 Suicidal ideations; I10 Essential (primary) hypertension; B18.2 Chronic viral hepatitis C; F12.90 Cannabis use, unspecified, uncomplicated; F17.200 Nicotine dependence, unspecified, uncomplicated; F32.9 Major depressive disorder, single episode, unspecified; G47.00 Insomnia, unspecified; J44.9 Chronic obstructive pulmonary disease, unspecified; K21.9 Gastro-esophageal reflux disease without esophagitis; F29 Unspecified psychosis not due to a substance or known physiological condition; Z59.0 Homelessness; Z79.899 Other long term (current) drug therapy; Z72.89 Other problems related to lifestyle
CPT/HCPCS: 83036; 84439; 84443

== ENCOUNTER 2017-01-06 14:08 | Emergency (ER) | payer MEDICAID, OTHER ==
[~2017-01-06] VITALS: Ht 170.2 cm; Wt 65.9 kg
[~2017-01-06 14:08] MED LIST changes: -ACAM333T7 PO; -OLAN10TA22 PO; +OLAN10TA3 PO
[2017-01-06] MEDS ORDERED: METH10SO PO (14:25)
[2017-01-06 16:00] LABS: HEMATOCRIT 37.5 % (41-53); HEMOGLOBIN 12.8 g/dL (13.5-17.5); MEAN CORPUSCULAR HEMOGLOBIN 30.4 pg (26.0-34.0); MEAN CORPUSCULAR HGB CONC 34.3 G/dL (31.0-37.0); MEAN CORPUSCULAR VOLUME 89 fL (80-100); PLATELET COUNT (AUTO) 137 K/uL (150-450); RED BLOOD CELL COUNT(AUTO) 4.22 MIL/uL (4.50-5.90); RED CELL DISTRIBUTION WIDTH 13.7 % (11.5-14.5); WHITE BLOOD COUNT (AUTO) 6.5 K/uL (4.5-11.0)
[2017-01-06 16:06] LABS: ANION GAP 7 mmol/L (8-16); CALCIUM, TOTAL 8.7 mg/dL (8.8-10.5); CARBON DIOXIDE 29 mmol/L (22-29); CHLORIDE 104 mmol/L (98-107); CREATININE 0.84 mg/dL (0.60-1.30); GLOMERULAR FILTR. RATE CALC > 60 mL/min (>60); POTASSIUM 3.7 mmol/L (3.5-5.1); SODIUM SERUM 140 mmol/L (136-145); UREA NITROGEN, BLOOD 12 mg/dL (7-18)
[2017-01-06 16:11] LABS: ALANINE AMINOTRANSFERASE 37 U/L (12-78); ALBUMIN 4.1 g/dL (3.4-5.0); ASPARTATE AMINOTRANSFERASE 41 U/L (15-37); BILIRUBIN,TOTAL 0.8 mg/dL (0.1-1.0); TOTAL PROTEIN, SERUM 7.7 g/dL (6.4-8.2)
[2017-01-06 16:19] LABS: SALICYLATE < 2.8 mg/dL (2.8-20.0)
[2017-01-06 16:24] LABS: ACETAMINOPHEN < 2 mcg/mL (10-30)
[2017-01-06 16:47] LABS: TOTAL CELLS COUNTED 100
[2017-01-06 16:48] LABS: BASOPHILS % (MANUAL) 1 % (0-2); EOSINOPHILS % (MANUAL) 2 % (1-6); LYMPHOCYTES % (MANUAL) 23 % (22-44)
[2017-01-06 18:30] VITALS: BP 150/80
== END 2017-01-06 18:48 | disposition home or self-care (01) ==
LOC: EMS 14:11
DX: T40.3X1A Poisoning by methadone, accidental (unintentional), initial encounter (principal); R46.89 Other symptoms and signs involving appearance and behavior; F31.9 Bipolar disorder, unspecified; F20.9 Schizophrenia, unspecified; E11.9 Type 2 diabetes mellitus without complications; I10 Essential (primary) hypertension; J44.9 Chronic obstructive pulmonary disease, unspecified; F12.90 Cannabis use, unspecified, uncomplicated; F14.90 Cocaine use, unspecified, uncomplicated; F17.210 Nicotine dependence, cigarettes, uncomplicated; Y92.89 Other specified places as the place of occurrence of the external cause
CPT/HCPCS: 36415; 80053; 82948; 85007; 85027; 93005; 99285; G0480; G0481

== ENCOUNTER 2017-10-25 11:43 | Inpatient (IN) | payer MEDICAID ==
[~2017-10-25] VITALS: Ht 157.5 cm; Wt 62.6 kg
[~2017-10-25 11:43] MED LIST changes: +DSS100 PO; +GABA-533 PO; +OMEP20 PO
[2017-10-25] MEDS ORDERED: HALOPERIDOL 5 MG TABLET PO PRN (13:00)
[2017-10-25] MEDS: LORazepam 2 MG TABLET PO PRN (15:09)
[2017-10-25 15:16] VITALS: BP 152/93
[2017-10-25] MEDS ORDERED: MAG HYDROX/AL HYDROX/SIMETH ES 30 ML SUSPENSION UDCUP PO PRN (15:30)
[2017-10-25] MEDS ORDERED: BENZOCAINE/MENTHOL LOZENGE MM PRN ×2 (15:30→21:30)
[2017-10-25] MEDS ORDERED: PETROLATUM,WHITE 71 GM JELLY TP PRN (15:30)
[2017-10-25] MEDS ORDERED: ONDANSETRON HCL 4 MG TABLET PO PRN (15:30)
[2017-10-25] MEDS ORDERED: ACETAMINOPHEN 325 MG TABLET PO PRN (15:30)
[2017-10-25] MEDS ORDERED: CloNIDine HCL 0.1 MG TABLET PO PRN (15:30)
[2017-10-25] MEDS ORDERED: ALBUTEROL SULFATE HFA 90 MCG/PUFF 8 GM INHALER IH PRN (15:30)
[2017-10-25] MEDS ORDERED: MAGNESIUM HYDROXIDE SUSPENSION 30 ML UDCUP PO PRN (15:30)
[2017-10-25] MEDS ORDERED: BACITRACIN 28.4 GM OINTMENT TP PRN ×2 (15:30→21:30)
[2017-10-25] MEDS ORDERED: LOPERAMIDE HCL 2 MG CAPSULE PO PRN (15:30)
[2017-10-25] MEDS ORDERED: IBUPROFEN 600 MG TABLET PO PRN (15:30)
[2017-10-25 18:14] VITALS: BP 136/88
[2017-10-25] MEDS: OLANZapine 10 MG TABLET PO SCH (21:20)
[2017-10-25] MEDS: ZOLPIDEM TARTRATE 10 MG TABLET PO PRN (22:08)
[2017-10-26] VITALS: BP 130/81
[2017-10-26] MEDS: LORazepam 2 MG TABLET PO PRN ×2 (00:01→09:06)
[2017-10-26 08:33] VITALS: BP 139/80
[2017-10-26] MEDS: GABAPENTIN 400 MG CAPSULE PO SCH ×3 (08:42→16:56)
[2017-10-26] MEDS: SERTRALINE HCL 50 MG TABLET PO SCH (08:42)
[2017-10-26] MEDS: DOCUSATE SODIUM 100 MG CAPSULE PO SCH (08:42)
[2017-10-26] MEDS: OMEPRAZOLE 20 MG CAPSULE PO SCH (08:42)
[2017-10-26] MEDS: NICOTINE 14 MG/24 HOUR PATCH TD SCH (08:43)
[2017-10-26] MEDS ORDERED: GABAPENTIN 400 MG CAPSULE PO SCH (09:00)
[2017-10-26 09:18] LABS: BASOPHILS % (AUTO) 1.3 % (0.0-2.0); EOSINOPHILS % (AUTO) 4.3 % (1.0-6.0); HEMOGLOBIN 13.7 g/dL (13.5-17.5); LYMPHOCYTES # (AUTO) 0.9 K/uL (1.0-4.8); LYMPHOCYTES % (AUTO) 28.6 % (22.0-44.0); MEAN CORPUSCULAR HEMOGLOBIN 31.1 pg (26.0-34.0); MEAN CORPUSCULAR HGB CONC 34.3 G/dL (31.0-37.0); MEAN CORPUSCULAR VOLUME 91 fL (80-100); MONOCYTES # (AUTO) 0.3 K/uL (0.1-1.0); MONOCYTES % (AUTO) 8.3 % (2.0-9.0); NEUTROPHILS # (AUTO) 1.8 K/uL (1.8-7.7); NEUTROPHILS % (AUTO) 57.5 % (40.0-70.0); PLATELET COUNT (AUTO) 148 K/uL (150-450); RED BLOOD CELL COUNT(AUTO) 4.42 MIL/uL (4.50-5.90)
[2017-10-26 09:43] LABS: ALANINE AMINOTRANSFERASE 42 U/L (12-78); ALBUMIN 3.8 g/dL (3.4-5.0); ALKALINE PHOSPHATASE 96 U/L (46-116); ANION GAP 8 mmol/L (8-16); ASPARTATE AMINOTRANSFERASE 50 U/L (15-37); BILIRUBIN,TOTAL 0.8 mg/dL (0.1-1.0); CALCIUM, TOTAL 8.8 mg/dL (8.8-10.5); CARBON DIOXIDE 28 mmol/L (22-29); CHLORIDE 101 mmol/L (98-107); CHOL/HDL RATIO 1.6 (4.2-7.3); CHOLESTEROL 197 mg/dL (131-200); CREATININE 0.62 mg/dL (0.60-1.30); FREE T4 (FREE THYROXINE) 0.94 ng/dL (0.76-1.46); GLOMERULAR FILTR. RATE CALC > 60 mL/min (>60); GLUCOSE,RANDOM 96 mg/dL (70-110); HDL CHOLESTEROL 125 mg/dL (40-60); LDL CHOL (CALC.) 62 mg/dL (0-130); POTASSIUM 3.8 mmol/L (3.5-5.1); SODIUM SERUM 137 mmol/L (136-145); THYROID STIMULATING HORMONE 2.99 uIU/mL (0.36-3.74); TOTAL PROTEIN, SERUM 7.8 g/dL (6.4-8.2); TRIGLYCERIDES 51 mg/dL (15-150); UREA NITROGEN, BLOOD 11 mg/dL (7-18)
[2017-10-26] MEDS: METHADONE HCL 10 MG/5 ML SOLUTION ORAL.SYG PO SCH (16:57)
[2017-10-26 17:42] VITALS: BP 139/98
[2017-10-26] MEDS: OLANZapine 10 MG TABLET PO SCH (21:00)
[2017-10-26] MEDS: ZOLPIDEM TARTRATE 10 MG TABLET PO PRN (21:18)
[2017-10-27] MEDS: LORazepam 2 MG TABLET PO PRN ×3 (00:16→16:09)
[2017-10-27 07:14] VITALS: BP 130/86
[2017-10-27 08:41] VITALS: BP 136/84
[2017-10-27] MEDS: METHADONE HCL 10 MG/5 ML SOLUTION ORAL.SYG PO SCH (09:25)
[2017-10-27] MEDS: DOCUSATE SODIUM 100 MG CAPSULE PO SCH (09:26)
[2017-10-27] MEDS: OMEPRAZOLE 20 MG CAPSULE PO SCH (09:26)
[2017-10-27] MEDS: SERTRALINE HCL 50 MG TABLET PO SCH (09:26)
[2017-10-27] MEDS: GABAPENTIN 400 MG CAPSULE PO SCH ×3 (09:26→16:09)
[2017-10-27] MEDS: MULTIVITAMINS WITH MINERALS, THERAPEUTIC TABLET PO SCH (09:26)
[2017-10-27] MEDS: NICOTINE 14 MG/24 HOUR PATCH TD SCH (09:47)
[2017-10-27 16:10] VITALS: BP 135/75
[2017-10-27] MEDS: OLANZapine 10 MG TABLET PO SCH (20:01)
[2017-10-27] MEDS: ZOLPIDEM TARTRATE 10 MG TABLET PO PRN (21:24)
[2017-10-28] MEDS: LORazepam 2 MG TABLET PO PRN (00:51)
[2017-10-28 00:56] VITALS: BP 132/84
[2017-10-28] MEDS: GABAPENTIN 400 MG CAPSULE PO SCH (08:13)
[2017-10-28] MEDS: DOCUSATE SODIUM 100 MG CAPSULE PO SCH (08:13)
[2017-10-28] MEDS: OMEPRAZOLE 20 MG CAPSULE PO SCH (08:13)
[2017-10-28] MEDS: MULTIVITAMINS WITH MINERALS, THERAPEUTIC TABLET PO SCH (08:13)
[2017-10-28] MEDS: SERTRALINE HCL 50 MG TABLET PO SCH (08:13)
[2017-10-28] MEDS: NICOTINE 14 MG/24 HOUR PATCH TD SCH (08:14)
[2017-10-28] MEDS: METHADONE HCL 10 MG/5 ML SOLUTION ORAL.SYG PO SCH (08:18)
[2017-10-28 09:05] VITALS: BP 124/79
[2017-10-28] MEDS ORDERED: SERT100T12 PO (12:09)
[2017-10-28] MEDS ORDERED: GABA-533 PO (12:09)
[2017-10-28] MEDS ORDERED: OLAN10TA3 PO (12:09)
== END 2017-10-28 12:30 | disposition home or self-care (01) | DRG 750 ==
LOC: B2S 13:09
PROVIDERS: ADMIT Psychiatry & Neurology Psychiatry; ATTEND Psychiatry & Neurology Psychiatry
DX: F25.0 Schizoaffective disorder, bipolar type (principal); F11.20 Opioid dependence, uncomplicated; R45.851 Suicidal ideations; I10 Essential (primary) hypertension; B18.2 Chronic viral hepatitis C; F12.90 Cannabis use, unspecified, uncomplicated; F17.200 Nicotine dependence, unspecified, uncomplicated; F32.9 Major depressive disorder, single episode, unspecified; F41.9 Anxiety disorder, unspecified; J44.9 Chronic obstructive pulmonary disease, unspecified; K21.9 Gastro-esophageal reflux disease without esophagitis; Z79.899 Other long term (current) drug therapy; Z72.89 Other problems related to lifestyle; Z71.41 Alcohol abuse counseling and surveillance of alcoholic; Z71.6 Tobacco abuse counseling; Z71.51 Drug abuse counseling and surveillance of drug abuser
CPT/HCPCS: 84439; 84443; Q0162

== ENCOUNTER 2017-10-31 11:41 | Emergency (ER) | payer MEDICAID, OTHER ==
[~2017-10-31] VITALS: Ht 170.2 cm; Wt 68.5 kg
[2017-10-31] MEDS ORDERED: SODIUM CHLORIDE 0.9% 500 ML IV ONE (12:30)
[2017-10-31 12:36] LABS: BASOPHILS % (AUTO) 0.9 % (0.0-2.0); EOSINOPHILS % (AUTO) 0.3 % (1.0-6.0); HEMATOCRIT 41.6 % (41-53); HEMOGLOBIN 13.9 g/dL (13.5-17.5); LYMPHOCYTES % (AUTO) 18.2 % (22.0-44.0); MEAN CORPUSCULAR HEMOGLOBIN 30.5 pg (26.0-34.0); MEAN CORPUSCULAR HGB CONC 33.6 G/dL (31.0-37.0); MEAN CORPUSCULAR VOLUME 91 fL (80-100); MONOCYTES # (AUTO) 0.5 K/uL (0.1-1.0); MONOCYTES % (AUTO) 9.4 % (2.0-9.0); NEUTROPHILS # (AUTO) 3.9 K/uL (1.8-7.7); NEUTROPHILS % (AUTO) 71.2 % (40.0-70.0); PLATELET COUNT (AUTO) 169 K/uL (150-450); RED BLOOD CELL COUNT(AUTO) 4.57 MIL/uL (4.50-5.90); RED CELL DISTRIBUTION WIDTH 14.2 % (11.5-14.5)
[2017-10-31 12:48] LABS: ANION GAP 12 mmol/L (8-16); CARBON DIOXIDE 25 mmol/L (22-29); CHLORIDE 102 mmol/L (98-107); CREATININE 0.84 mg/dL (0.60-1.30); GLOMERULAR FILTR. RATE CALC > 60 mL/min (>60); GLUCOSE,RANDOM 105 mg/dL (70-110); POTASSIUM 4.2 mmol/L (3.5-5.1); SODIUM SERUM 139 mmol/L (136-145); UREA NITROGEN, BLOOD 17 mg/dL (7-18)
[2017-10-31 12:55] LABS: ALANINE AMINOTRANSFERASE 39 U/L (12-78); ALBUMIN 4.3 g/dL (3.4-5.0); ALKALINE PHOSPHATASE 106 U/L (46-116); ASPARTATE AMINOTRANSFERASE 33 U/L (15-37); BILIRUBIN,TOTAL 0.6 mg/dL (0.1-1.0); TOTAL PROTEIN, SERUM 8.6 g/dL (6.4-8.2)
[2017-10-31 13:15] VITALS: BP 138/86
== END 2017-10-31 13:25 | disposition home or self-care (01) ==
LOC: EMS 11:45
DX: K21.9 Gastro-esophageal reflux disease without esophagitis (principal); F10.20 Alcohol dependence, uncomplicated; R07.9 Chest pain, unspecified; F31.9 Bipolar disorder, unspecified; J44.9 Chronic obstructive pulmonary disease, unspecified; E11.9 Type 2 diabetes mellitus without complications; I10 Essential (primary) hypertension; I25.2 Old myocardial infarction; F20.9 Schizophrenia, unspecified; F17.210 Nicotine dependence, cigarettes, uncomplicated; F12.90 Cannabis use, unspecified, uncomplicated; F14.90 Cocaine use, unspecified, uncomplicated
CPT/HCPCS: 36415; 71045; 80053; 84484; 85025; 93005; 99285; J7040

== ENCOUNTER 2020-03-17 12:55 | Inpatient (IN) | payer MEDICAID ==
[~2020-03-17] VITALS: Ht 170.2 cm; Wt 80.0 kg
[~2020-03-17 12:55] MED LIST changes: +GABA-1201 PO; -GABA-533 PO
[2020-03-17] MEDS ORDERED: HALOPERIDOL 5 MG TABLET PO PRN (15:30)
[2020-03-17 18:10] LABS: COVID AG,FIA SOURCE NASOPHARYNGEAL
[2020-03-17] MEDS ORDERED: INFLUENZA VIRUS VACCINE QVS 2020-21 (6MO+)/PF 60 MCG/0.5 ML SYRINGE IM ONE (19:15)
[2020-03-17 20:04] VITALS: BP 154/99
[2020-03-17] MEDS ORDERED: CloNIDine HCL 0.1 MG TABLET PO PRN (20:15)
[2020-03-17] MEDS ORDERED: DOCUSATE SODIUM 100 MG CAPSULE PO PRN (20:15)
[2020-03-17] MEDS ORDERED: BENZOCAINE/MENTHOL LOZENGE PO PRN (20:15)
[2020-03-17] MEDS ORDERED: MAGNESIUM HYDROXIDE SUSPENSION 30 ML UDCUP PO PRN (20:15)
[2020-03-17] MEDS ORDERED: PETROLATUM,WHITE 28 GM JELLY TP PRN (20:15)
[2020-03-17] MEDS ORDERED: ALBUTEROL SULFATE HFA 90 MCG/PUFF 8 GM INHALER IH PRN (20:15)
[2020-03-17] MEDS ORDERED: ONDANSETRON HCL 4 MG TABLET PO PRN (20:15)
[2020-03-17] MEDS ORDERED: IBUPROFEN 600 MG TABLET PO PRN (20:15)
[2020-03-17] MEDS ORDERED: MAG HYDROX/AL HYDROX/SIMETH ES 30 ML SUSPENSION UDCUP PO PRN (20:15)
[2020-03-17] MEDS ORDERED: OMEPRAZOLE 20 MG CAPSULE PO PRN (20:15)
[2020-03-17] MEDS ORDERED: BACITRACIN 28 GM OINTMENT TP PRN (20:15)
[2020-03-17] MEDS ORDERED: LOPERAMIDE HCL 2 MG CAPSULE PO PRN (20:15)
[2020-03-17] MEDS ORDERED: ACETAMINOPHEN 325 MG TABLET PO PRN (20:15)
[2020-03-17] MEDS: LORazepam 1 MG TABLET PO PRN (20:57)
[2020-03-17] MEDS: ZOLPIDEM TARTRATE 10 MG TABLET PO PRN (22:07)
[2020-03-18 01:47] VITALS: BP 142/82
[2020-03-18 08:23] VITALS: BP 136/78
[2020-03-18] MEDS: LISINOPRIL 20 MG TABLET PO SCH (10:06)
[2020-03-18] MEDS: SERTRALINE HCL 100 MG TABLET PO SCH (10:06)
[2020-03-18] MEDS: NICOTINE 21 MG/24 HOUR PATCH TD SCH (10:12)
[2020-03-18] MEDS: LORazepam 1 MG TABLET PO PRN ×2 (10:28→20:57)
[2020-03-18 16:34] VITALS: BP 138/87
[2020-03-18] MEDS: ZOLPIDEM TARTRATE 10 MG TABLET PO PRN (23:01)
[2020-03-19 00:25] VITALS: BP 132/74
[2020-03-19] MEDS: LORazepam 1 MG TABLET PO PRN ×3 (05:28→20:25)
[2020-03-19 08:21] VITALS: BP 124/81
[2020-03-19] MEDS: LISINOPRIL 20 MG TABLET PO SCH (09:39)
[2020-03-19] MEDS: SERTRALINE HCL 100 MG TABLET PO SCH (09:39)
[2020-03-19] MEDS: NICOTINE 21 MG/24 HOUR PATCH TD SCH (09:45)
[2020-03-19 16:34] VITALS: BP 122/77
[2020-03-20] MEDS: ZOLPIDEM TARTRATE 10 MG TABLET PO PRN ×2 (00:05→22:02)
[2020-03-20 01:00] VITALS: BP 132/88
[2020-03-20 08:53] VITALS: BP 122/78
[2020-03-20] MEDS: LISINOPRIL 20 MG TABLET PO SCH (08:53)
[2020-03-20] MEDS: NICOTINE 21 MG/24 HOUR PATCH TD SCH (08:53)
[2020-03-20] MEDS: SERTRALINE HCL 100 MG TABLET PO SCH (08:53)
[2020-03-20] MEDS: LORazepam 1 MG TABLET PO PRN ×2 (10:49→20:00)
[2020-03-20 16:24] VITALS: BP 112/69
[2020-03-21 04:54] VITALS: BP 120/71
[2020-03-21 08:31] VITALS: BP 106/63
[2020-03-21] MEDS: LISINOPRIL 20 MG TABLET PO SCH (08:33)
[2020-03-21] MEDS: NICOTINE 21 MG/24 HOUR PATCH TD SCH (08:33)
[2020-03-21] MEDS: SERTRALINE HCL 100 MG TABLET PO SCH (08:33)
[2020-03-21] MEDS: LORazepam 1 MG TABLET PO PRN ×3 (09:12→20:18)
[2020-03-21 16:11] VITALS: BP 107/76
[2020-03-21] MEDS: ZOLPIDEM TARTRATE 10 MG TABLET PO PRN (21:41)
[2020-03-22 06:29] VITALS: BP 126/65
[2020-03-22] MEDS: SERTRALINE HCL 100 MG TABLET PO SCH (08:09)
[2020-03-22] MEDS: NICOTINE 21 MG/24 HOUR PATCH TD SCH (08:09)
[2020-03-22] MEDS: LORazepam 1 MG TABLET PO PRN ×2 (08:09→20:03)
[2020-03-22] MEDS: LISINOPRIL 20 MG TABLET PO SCH (08:09)
[2020-03-22 08:33] VITALS: BP 139/90
[2020-03-22 16:10] VITALS: BP 124/81
[2020-03-22] MEDS: ZOLPIDEM TARTRATE 10 MG TABLET PO PRN (20:03)
[2020-03-23 00:35] VITALS: BP 119/67
[2020-03-23 08:13] VITALS: BP 132/92
[2020-03-23] MEDS: NICOTINE 21 MG/24 HOUR PATCH TD SCH (09:07)
[2020-03-23] MEDS: SERTRALINE HCL 100 MG TABLET PO SCH (09:07)
[2020-03-23] MEDS: LISINOPRIL 20 MG TABLET PO SCH (09:07)
[2020-03-23] MEDS: LORazepam 1 MG TABLET PO PRN ×2 (09:07→14:08)
[2020-03-23 09:12] LABS: BASOPHILS % (AUTO) 0.6 % (0.0-2.0); EOSINOPHILS % (AUTO) 2.7 % (1.0-6.0); HEMATOCRIT 44.7 % (41-53); HEMOGLOBIN 14.7 g/dL (13.5-17.5); LYMPHOCYTES # (AUTO) 1.5 K/uL (1.0-4.8); LYMPHOCYTES % (AUTO) 26.9 % (22.0-44.0); MEAN CORPUSCULAR HEMOGLOBIN 29.5 pg (26.0-34.0); MEAN CORPUSCULAR HGB CONC 32.9 G/dL (31.0-37.0); MEAN CORPUSCULAR VOLUME 90 fL (80-100); MONOCYTES # (AUTO) 0.5 K/uL (0.1-1.0); MONOCYTES % (AUTO) 8.2 % (2.0-9.0); NEUTROPHILS # (AUTO) 3.4 K/uL (1.8-7.7); NEUTROPHILS % (AUTO) 61.6 % (40.0-70.0); PLATELET COUNT (AUTO) 204 K/uL (150-450); RED BLOOD CELL COUNT(AUTO) 4.99 MIL/uL (4.50-5.90); RED CELL DISTRIBUTION WIDTH 13.2 % (11.5-14.5)
[2020-03-23 09:31] LABS: HEMOGLOBIN A1C 6.1 % (3.8-5.6)
[2020-03-23 09:32] LABS: ALANINE AMINOTRANSFERASE 31 U/L (12-78); ALBUMIN 3.4 g/dL (3.4-5.0); ALKALINE PHOSPHATASE 114 U/L (46-116); ANION GAP 9 mmol/L (8-16); ASPARTATE AMINOTRANSFERASE 26 U/L (15-37); BILIRUBIN,TOTAL 0.5 mg/dL (0.1-1.0); CALCIUM, TOTAL 8.6 mg/dL (8.8-10.5); CARBON DIOXIDE 24 mmol/L (22-29); CHLORIDE 103 mmol/L (98-107); CHOL/HDL RATIO 3.4 (4.2-7.3); CHOLESTEROL 168 mg/dL (131-200); CREATININE 0.86 mg/dL (0.60-1.30); FREE T4 (FREE THYROXINE) 1.05 ng/dL (0.76-1.46); GLOMERULAR FILTR. RATE CALC > 60 mL/min (>60); GLUCOSE,RANDOM 104 mg/dL (70-110); HDL CHOLESTEROL 50 mg/dL (40-60); LDL CHOL (CALC.) 100 mg/dL (0-130); POTASSIUM 4.7 mmol/L (3.5-5.1); SODIUM SERUM 136 mmol/L (136-145); THYROID STIMULATING HORMONE 2.99 uIU/mL (0.36-3.74); TOTAL PROTEIN, SERUM 7.7 g/dL (6.4-8.2); TRIGLYCERIDES 89 mg/dL (15-150); UREA NITROGEN, BLOOD 23 mg/dL (7-18)
[2020-03-23 16:23] VITALS: BP 103/64
[2020-03-23] MEDS ORDERED: LISI20TA PO (17:34)
[2020-03-23] MEDS ORDERED: SERT20OR6 PO (17:35)
[2020-03-23] MEDS ORDERED: SERT100T12 PO (17:36)
== END 2020-03-23 18:25 | disposition home or self-care (01) | DRG 750 ==
LOC: B2S 18:47
PROVIDERS: ADMIT Psychiatry & Neurology Psychiatry; ATTEND Psychiatry & Neurology Psychiatry
DX: F25.9 Schizoaffective disorder, unspecified (principal); R45.851 Suicidal ideations; J44.9 Chronic obstructive pulmonary disease, unspecified; B18.2 Chronic viral hepatitis C; F12.90 Cannabis use, unspecified, uncomplicated; F17.200 Nicotine dependence, unspecified, uncomplicated; F41.9 Anxiety disorder, unspecified; G47.00 Insomnia, unspecified; I10 Essential (primary) hypertension; K21.9 Gastro-esophageal reflux disease without esophagitis; F11.20 Opioid dependence, uncomplicated; Z20.822 Contact with and (suspected) exposure to COVID-19
CPT/HCPCS: 83036; 84436; 84439; 84443; 87426; G0480

== ENCOUNTER 2021-03-25 15:02 | Emergency (ER) | payer MEDICAID, OTHER ==
[~2021-03-25] VITALS: Ht 170.2 cm; Wt 77.3 kg
[~2021-03-25 15:02] MED LIST changes: -DSS100 PO; -GABA-1201 PO; +LISI20TA PO; -OLAN10TA3 PO; -OMEP20 PO; +SERT-162 PO; -SERT100T12 PO
[2021-03-25] MEDS ORDERED: METH10 PO (15:28)
[2021-03-25 17:28] LABS: EOSINOPHILS % (AUTO) 1.8 % (1.0-6.0); HEMATOCRIT 41.3 % (41-53); HEMOGLOBIN 13.9 g/dL (13.5-17.5); LYMPHOCYTES # (AUTO) 1.2 K/uL (1.0-4.8); LYMPHOCYTES % (AUTO) 18.2 % (22.0-44.0); MEAN CORPUSCULAR HEMOGLOBIN 28.4 pg (26.0-34.0); MEAN CORPUSCULAR HGB CONC 33.7 G/dL (31.0-37.0); MEAN CORPUSCULAR VOLUME 84 fL (80-100); MONOCYTES # (AUTO) 0.3 K/uL (0.1-1.0); MONOCYTES % (AUTO) 5.3 % (2.0-9.0); NEUTROPHILS # (AUTO) 4.8 K/uL (1.8-7.7); NEUTROPHILS % (AUTO) 73.7 % (40.0-70.0); RED BLOOD CELL COUNT(AUTO) 4.89 MIL/uL (4.50-5.90); RED CELL DISTRIBUTION WIDTH 13.5 % (11.5-14.5)
[2021-03-25 17:45] LABS: ANION GAP 8 mmol/L (8-16); CARBON DIOXIDE 27 mmol/L (22-29); CHLORIDE 103 mmol/L (98-107); CREATININE 0.82 mg/dL (0.60-1.30); GLOMERULAR FILTR. RATE CALC > 60 mL/min (>60); GLUCOSE,RANDOM 111 mg/dL (70-110); POTASSIUM 4.4 mmol/L (3.5-5.1); SODIUM SERUM 138 mmol/L (136-145); UREA NITROGEN, BLOOD 13 mg/dL (7-18)
[2021-03-25 17:52] LABS: ALANINE AMINOTRANSFERASE 29 U/L (12-78); ALBUMIN 3.8 g/dL (3.4-5.0); ALKALINE PHOSPHATASE 137 U/L (46-116); ASPARTATE AMINOTRANSFERASE 25 U/L (15-37); BILIRUBIN,TOTAL 0.3 mg/dL (0.1-1.0); TOTAL PROTEIN, SERUM 8.4 g/dL (6.4-8.2)
[2021-03-25 18:39] LABS: PLATELET COUNT (AUTO) 257 K/uL (150-450)
[2021-03-25 20:54] LABS: AMPHET/METH SCREEN,URINE NEGATIVE (NEGATIVE); BARBITURATE SCREEN, URINE NEGATIVE (NEGATIVE); BENZODIAZEPINES SCREEN,URINE POSITIVE (NEGATIVE); CANNABINOID SCREEN,URINE NEGATIVE (NEGATIVE); COCAINE SCREEN,URINE NEGATIVE (NEGATIVE); METHADONE SCREEN, URINE POSITIVE (NEGATIVE); OPIATE SCREEN,URINE NEGATIVE (NEGATIVE)
[2021-03-25 20:56] LABS: PHENCYCLIDINE SCREEN,URINE NEGATIVE (NEGATIVE)
[2021-03-25 21:00] VITALS: BP 153/82
== END 2021-03-25 21:30 | disposition home or self-care (01) ==
LOC: EMS 15:05
DX: U07.1 COVID-19 (principal); R42 Dizziness and giddiness; I10 Essential (primary) hypertension; E11.9 Type 2 diabetes mellitus without complications; F31.9 Bipolar disorder, unspecified; F12.90 Cannabis use, unspecified, uncomplicated; F14.90 Cocaine use, unspecified, uncomplicated; F17.210 Nicotine dependence, cigarettes, uncomplicated; Z79.899 Other long term (current) drug therapy
CPT/HCPCS: 36415; 80053; 80307; 85025; 99285; G0480; U0003

== ENCOUNTER 2021-08-23 13:15 | Emergency (ER) | payer OTHER ==
[~2021-08-23] VITALS: Ht 170.2 cm; Wt 79.5 kg
[~2021-08-23 13:15] MED LIST changes: +METH10 PO
[2021-08-23] MEDS ORDERED: LISI-894 PO (14:12)
[2021-08-23] MEDS ORDERED: ONDANSETRON HCL 4 MG/2 ML VIAL IVP ONE (14:15)
[2021-08-23] MEDS ORDERED: SODIUM CHLORIDE 0.9% 1,000 ML IV ONE (14:15)
[2021-08-23 14:32] LABS: BASOPHILS % (AUTO) 0.4 % (0.0-2.0); EOSINOPHILS % (AUTO) 0.5 % (1.0-6.0); HEMOGLOBIN 12.8 g/dL (13.5-17.5); LYMPHOCYTES # (AUTO) 0.6 K/uL (1.0-4.8); LYMPHOCYTES % (AUTO) 8.8 % (22.0-44.0); MEAN CORPUSCULAR HEMOGLOBIN 29.6 pg (26.0-34.0); MEAN CORPUSCULAR HGB CONC 33.7 G/dL (31.0-37.0); MEAN CORPUSCULAR VOLUME 88 fL (80-100); MONOCYTES # (AUTO) 0.3 K/uL (0.1-1.0); MONOCYTES % (AUTO) 4.2 % (2.0-9.0); NEUTROPHILS # (AUTO) 6.2 K/uL (1.8-7.7); PLATELET COUNT (AUTO) 173 K/uL (150-450); RED BLOOD CELL COUNT(AUTO) 4.33 MIL/uL (4.50-5.90); RED CELL DISTRIBUTION WIDTH 13.1 % (11.5-14.5)
[2021-08-23 14:36] LABS: NEUTROPHILS % (AUTO) 86.1 % (40.0-70.0)
[2021-08-23 14:54] LABS: ANION GAP 8 mmol/L (8-16); CALCIUM, TOTAL 8.6 mg/dL (8.8-10.5); CARBON DIOXIDE 24 mmol/L (22-29); CHLORIDE 104 mmol/L (98-107); CREATININE 0.68 mg/dL (0.60-1.30); GLOMERULAR FILTR. RATE CALC > 60 mL/min (>60); GLUCOSE,RANDOM 124 mg/dL (70-110); POTASSIUM 4.2 mmol/L (3.5-5.1); SODIUM SERUM 136 mmol/L (136-145); UREA NITROGEN, BLOOD 17 mg/dL (7-18)
[2021-08-23 16:16] VITALS: BP 139/84
== END 2021-08-23 16:52 | disposition home or self-care (01) ==
LOC: EMS 13:15
DX: F10.129 Alcohol abuse with intoxication, unspecified (principal); F31.9 Bipolar disorder, unspecified; J44.9 Chronic obstructive pulmonary disease, unspecified; E11.9 Type 2 diabetes mellitus without complications; I10 Essential (primary) hypertension; F20.9 Schizophrenia, unspecified; F17.210 Nicotine dependence, cigarettes, uncomplicated; F14.90 Cocaine use, unspecified, uncomplicated; F12.90 Cannabis use, unspecified, uncomplicated; Z87.19 Personal history of other diseases of the digestive system; Z86.79 Personal history of other diseases of the circulatory system
CPT/HCPCS: 36415; 80048; 85025; 96361; 96374; 99283; J2405; J7030